=== PATIENT | male | born 1970 | race Native Hawaiian/Other Pacific Islander ===

== ENCOUNTER 2016-08-28 09:24 | Outpatient (CLI) | payer BC ==
[~2016-08-28 09:24] MED LIST: ACCUPRIL20 MG PO; NEXIUM40 M1 PO; ZOLP10TA2 PO
== END 2016-08-28 19:47 | disposition home or self-care (01) ==
LOC: US 09:24
DX: R10.11 Right upper quadrant pain (principal)

== ENCOUNTER 2016-12-24 07:33 | Outpatient (CLI) | payer BC | END 2016-12-24 09:00 | disposition home or self-care (01) | LOC: MRI 07:33 | DX: R51 Headache (principal) ==

== ENCOUNTER 2018-03-15 12:57 | Outpatient (CLI) | payer OTHER | END 2018-03-15 19:24 | disposition home or self-care (01) | LOC: US 12:57 | DX: M79.89 Other specified soft tissue disorders (principal); M70.51 Other bursitis of knee, right knee ==

== ENCOUNTER 2020-02-09 08:28 | Outpatient (CLI) | payer OTHER | END 2020-02-09 23:01 | disposition home or self-care (01) | LOC: RAD 08:28 | DX: M25.511 Pain in right shoulder (principal); M50.90 Cervical disc disorder, unspecified, unspecified cervical region; M25.512 Pain in left shoulder ==

== ENCOUNTER 2020-05-17 10:05 | Outpatient (CLI) | payer OTHER | END 2020-05-17 19:23 | disposition home or self-care (01) | LOC: RAD 10:05 | PROVIDERS: ATTEND Internal Medicine | DX: J40 Bronchitis, not specified as acute or chronic (principal) ==

== ENCOUNTER 2020-06-04 14:27 | Emergency (ER) | payer OTHER ==
[~2020-06-04] VITALS: Ht 165.1 cm; Wt 86.2 kg
[2020-06-04 14:39] VITALS: TEMP 99.1
[2020-06-04 16:20] VITALS: BP 175/99
== END 2020-06-04 16:20 | disposition home or self-care (01) ==
LOC: ED 14:27
DX: S16.1XXA Strain of muscle, fascia and tendon at neck level, initial encounter (principal); S83.8X1A Sprain of other specified parts of right knee, initial encounter; V59.40XA Driver of pick-up truck or van injured in collision with unspecified motor vehicles in traffic accident, initial encounter; Y92.89 Other specified places as the place of occurrence of the external cause
CPT/HCPCS: 99283

== ENCOUNTER 2020-06-21 14:23 | Outpatient (CLI) | payer OTHER | END 2020-06-21 20:48 | disposition home or self-care (01) | LOC: MRI 14:23 | PROVIDERS: ATTEND Internal Medicine | DX: M54.2 Cervicalgia (principal); M62.9 Disorder of muscle, unspecified; M25.511 Pain in right shoulder ==

== ENCOUNTER 2020-11-05 13:05 | Outpatient (CLI) | payer OTHER | END 2020-11-05 21:50 | disposition home or self-care (01) | LOC: MRI 13:05 | PROVIDERS: ATTEND Internal Medicine | DX: M25.551 Pain in right hip (principal); M54.5 Low back pain; M79.604 Pain in right leg ==

== ENCOUNTER 2020-12-17 10:27 | Emergency (ER) | payer OTHER ==
[~2020-12-17] VITALS: Ht 165.1 cm; Wt 86.2 kg
[2020-12-17 10:34] VITALS: TEMP 99.7
[2020-12-17 12:24] VITALS: BP 181/109
== END 2020-12-17 12:34 | disposition home or self-care (01) ==
LOC: ED 10:27
DX: M54.5 Low back pain (principal); Z98.890 Other specified postprocedural states
CPT/HCPCS: 96372; 99283; J2175; J2405

== ENCOUNTER 2021-03-01 08:46 | Outpatient (CLI) | payer OTHER ==
[2021-03-01 09:07] LABS: PLATELET COUNT 213 K/uL (142-355)
[2021-03-01 09:25] LABS: POTASSIUM 4.5 mmol/L (3.6-5.2)
== END 2021-03-01 19:00 | disposition home or self-care (01) ==
LOC: LABW 08:46
PROVIDERS: ATTEND Internal Medicine
DX: I10 Essential (primary) hypertension (principal)
CPT/HCPCS: 36415; 80053; 80061; 81000; 84439; 84443; 85027

== ENCOUNTER 2021-05-28 14:34 | Outpatient (CLI) | payer OTHER | END 2021-05-28 19:04 | disposition home or self-care (01) | LOC: MRI 14:34 | PROVIDERS: ATTEND Internal Medicine | DX: M51.16 Intervertebral disc disorders with radiculopathy, lumbar region (principal) | CPT/HCPCS: 36415; 82565; 84520; A9576 ==

== ENCOUNTER 2021-06-11 09:14 | Outpatient (CLI) | payer OTHER | END 2021-06-11 19:10 | disposition home or self-care (01) | LOC: CT 09:14 | PROVIDERS: ATTEND Internal Medicine | DX: R51.9 Headache, unspecified (principal) ==

== ENCOUNTER 2021-09-30 14:44 | Outpatient (CLI) | payer OTHER | END 2021-09-30 19:03 | disposition home or self-care (01) | LOC: MRI 14:44 | PROVIDERS: ATTEND Orthopaedic Surgery | DX: M47.812 Spondylosis without myelopathy or radiculopathy, cervical region (principal) ==

== ENCOUNTER 2021-11-19 09:54 | Outpatient (CLI) | payer OTHER | END 2021-11-19 19:14 | disposition home or self-care (01) | LOC: RAD 09:54 | PROVIDERS: ATTEND Internal Medicine | DX: M79.672 Pain in left foot (principal) ==

== ENCOUNTER 2022-04-14 09:42 | Outpatient (CLI) | payer OTHER ==
[2022-04-14 10:13] LABS: PLATELET COUNT 181 K/uL (142-355)
[2022-04-14 10:21] LABS: POTASSIUM 4.3 mmol/L (3.6-5.2)
== END 2022-04-14 19:59 | disposition home or self-care (01) ==
LOC: US 09:42
PROVIDERS: ATTEND Internal Medicine
DX: R10.11 Right upper quadrant pain (principal)
CPT/HCPCS: 36415; 80053; 82150; 83690; 85027

== ENCOUNTER 2022-04-15 09:38 | Outpatient (CLI) | payer OTHER | END 2022-04-15 19:55 | disposition home or self-care (01) | LOC: RAD 09:38 | PROVIDERS: ATTEND Internal Medicine | DX: M25.562 Pain in left knee (principal) ==

== ENCOUNTER 2022-04-23 07:54 | Outpatient (CLI) | payer OTHER | END 2022-04-23 19:16 | disposition home or self-care (01) | LOC: NM 07:54 | PROVIDERS: ATTEND Internal Medicine | DX: R10.11 Right upper quadrant pain (principal) | CPT/HCPCS: A9537 ==

== ENCOUNTER 2022-12-03 14:19 | Outpatient (CLI) | payer OTHER | END 2022-12-03 19:03 | disposition home or self-care (01) | LOC: RAD 14:19 | PROVIDERS: ATTEND Internal Medicine | DX: M47.22 Other spondylosis with radiculopathy, cervical region (principal) ==

== ENCOUNTER 2022-12-25 13:16 | Outpatient (CLI) | payer OTHER | END 2022-12-25 19:51 | disposition home or self-care (01) | LOC: MRI 13:16 | PROVIDERS: ATTEND Orthopaedic Surgery | DX: M47.812 Spondylosis without myelopathy or radiculopathy, cervical region (principal); M47.896 Other spondylosis, lumbar region ==